=== PATIENT | female | born 1975 | race American Indian/Alaskan Native ===

== ENCOUNTER 2016-05-15 14:45 | Emergency (ER) | payer MEDICAID ==
[2016-05-15 15:26] VITALS: BP 121/72
--- NOTE | 2016-05-15 15:50 | Emergency Department Report ---
Chief Complaint: Abdominal Pain Stated Complaint: ABD PAIN Time Seen by Provider: 05/15/16 15:51 - HPI History of Present Illness: Patient here complaining of onset of abdominal pain times one week. She said the pain is in her lower quadrant of her abdomen in the pelvic area and it 7 out of 10 and feels crampy. She says she just started her period 05/14/2016. She says she vomited once yesterday. Denies any fever or chills. Denies any urinary burning. - ROS Review of Systems: All systems are negative unless stated in HPI above. - Exam Vital Signs: Vital Signs 05/15/16 15:22 Temperature 98.2 F Pulse Rate 58 L Respiratory 18 Rate Blood Pressure 121/72 O2 Sat by Pulse 100 Oximetry Physical Exam: General: This is a 40-year-old female well-nourished well-developed in no acute distress. CV: S1, S2. Regular rate and rhythm. Abdomen: Mild tenderness to pelvic area. Guarding or rebound tenderness. Normal bowel sounds in all quadrants. MSE screening note: Focused history and physical exam performed. Due to findings the following was ordered:see [facility] ED Medical Decision Making - Medical Decision Making Medical decision making: Patient seen by provider in triage area. Appropriate protocol activated and patient to main ED to be seen by physician. ED Disposition for MSE Condition: Stable Instructions: Abdominal Pain (ED)
[2016-05-15 16:17] LABS: Basophils % (Auto) 0.4 % (0.0-1.8); Eosinophils % (Auto) 2.2 % (0.0-4.3); Hematocrit 40.6 % (30.3-42.9); Hemoglobin 13.2 gm/dl (10.1-14.3); Mean Corpuscular HGB Conc 33 % (30-34); Mean Corpuscular Hemoglobin 30 pg (28-32); Mean Corpuscular Volume 92 fl (79-97); Platelet Count 237 K/mm3 (140-440); Red Blood Count 4.39 M/mm3 (3.65-5.03); Red Cell Distribution Width 13.2 % (13.2-15.2); White Blood Count 5.7 K/mm3 (4.5-11.0)
[2016-05-15 16:37] LABS: Alanine Aminotransferase 28 units/L (7-56); Albumin 3.9 g/dL (3.9-5); Albumin/Globulin Ratio 1.4 %; Alkaline Phosphatase 76 units/L (35-129); BUN/Creatinine Ratio 14.28; Bilirubin,Total 0.2 mg/dL (0.1-1.2); Blood Urea Nitrogen 10 mg/dL (7-17); Calcium 9.1 mg/dL (8.4-10.2); Carbon Dioxide 27 mmol/L (22-30); Chloride 104.8 mmol/L (98-107); Glucose 97 mg/dL (65-100); Lipase 20 units/L (13-60); Sodium 141 mmol/L (137-145); Total Protein 6.6 g/dL (6.3-8.2)
[2016-05-15 16:42] LABS: Anion Gap 14 mmol/L
[2016-05-15 17:49] LABS: Bilirubin,Urine NEG (Negative); Blood,Urine NEG (Negative); Ketones,Urine NEG (Negative); Leukocyte Esterase,Urine NEG (Negative); Mucus,Urine FEW /HPF; Nitrite,Urine NEG (Negative); Protein,Urine <15 mg/dL mg/dL (Negative)
--- NOTE | 2016-05-16 00:16 | Admit Criteria Form ---
Admission Criteria Documentation: ABDOMINAL PAIN Clinical Indications for Admission to Inpatient Care (Place 'X' for any and all applicable criteria): Admission is indicated for ANY ONE of the following(1)(2)(3)(4)(5): [ ]I. Inpatient admission required rather than observation care (Also use Abdominal Pain: Observation Care, as appropriate) because of ANY ONE of the following: [ ]a) Severe pain requiring acute inpatient management [ ]b) Identification of etiology/finding that requires inpatient care (eg, aortic dissection, free air) [ ]c) Absent bowel sounds with complete ileus(6) [ ]d) Suspected toxic megacolon [ ]e) Severe electrolyte abnormalities requiring inpatient care [ ]f) High fever or infection requiring inpatient admission as indicated by ANY ONE of following(7)(8): [ ] i) Appropriate outpatient or observational care antimicrobial treatment unavailable, not effective, or not feasible [ ] ii) Documented bacteremia [ ] iii) Temperature > 104.9 degrees F (oral) [ ] iv) T >103.1 F (oral) or < 96.8 F(rectal) that does not respond to all emergency treatment measures [ ]g) Signs of intestinal obstruction [B] [ ]h) Hemodynamic instability [ ]i) IV fluid to replace significant ongoing losses (greater than 3 L/m2 per day) (12)(13) [ ]j) Percutaneous or open drainage (eg, abscess, biliary tract ) procedures [ ]k) Parenteral nutrition regimen that must be implemented on inpatient basis [ ]l) Other condition,treatment or monitoring requiring inpatient admission. [ X]II. Peritoneal signs present [ ]III. Surgery needed that cannot be performed on an ambulatory basis. [ ]IV. Evaluation requires patient to not eat or drink for extended period ( eg, more than 24 hours). [ ]V. Contraindications and/or Inappropriate clinical situations for Observational Care in patients with abdominal pain, when ANY ONE of the following is required: [ ]a) Thorough evaluation is required to prevent catastrophic events due to delays in diagnosing (e.g.Mesenteric ischemia) 1,3 [ ]b) Patient with severe pathology or with chronic symptoms unlikely to improve in the ED stay (3) [ ]. General contraindications and/or Inappropriate clinical situations for Observational Care in patients with abdominal pain, when ANY ONE of the following is required: [ ]a) Prediction of prolongation of LOS based on ANY ONE of the following may be considered as a contraindication for observational care 2, 3, 4, 5, 6, 7, 8, 9, 10, 11 [ ]i) Age > 65 yrs. [ ]ii) Patient arriving by ambulance [ ]iii) Patient with high acuity [ ]iv) Patient requiring vital sign monitoring [ ]v) Patient on IV medication [ ]b) Systolic blood pressures 180mmHg 3,12 [ ]c) Patient with altered mental status including delirium and other alteration of consciousness, (3) [ ]d) Patient whose discharge disposition will be to a senior care home or rehabilitation home should not be managed in Emergency Department Observation Unit. CMS rule requires 3 days hospital stay before such placement.3,13 [ ]e) Patient with failure to thrive due to broad array of etiologies 3,16,17 [ ]f) Inability to ambulate 3,14 Extended stay beyond goal length of stay may be needed for(2)(3): [ ]a) Persistent abdominal pain with suspected intra-abdominal process [ ]b) Diagnosed condition requiring continued stay (e.g., pancreatitis, complicated diverticulitis) [ ]c) Surgery (e.g., colectomy) The original [employer] [facility] content created by [employer] has been revised. The portions of the content which have been revised are identified through the use of italic text or in bold, and [facility] has neither reviewed nor approved the modified material.All other unmodified content is copyright [employer] [facility]. Please see references footnoted in the original [employer] edition 2016 Admission Criteria Met: Yes
--- NOTE | 2016-05-16 13:04 | ED Elopement Review ---
ED Pt Elopement review - Results review Lab results: Laboratory Tests 05/15/16 05/15/16 05/15/16 16:07 16:07 16:07 WBC 5.7 RBC 4.39 Hgb 13.2 Hct 40.6 MCV 92 MCH 30 MCHC 33 RDW 13.2 Plt Count 237 Lymph % (Auto) 33.9 [place] % (Auto) 10.8 H Eos % (Auto) 2.2 Baso % (Auto) 0.4 Lymph # 1.9 [place] # 0.6 Eos # 0.1 Baso # 0.0 Seg Neutrophils % 52.7 Seg Neutrophils # 3.0 Sodium 141 Potassium 5.0 Chloride 104.8 Carbon Dioxide 27 Anion Gap 14 BUN 10 Creatinine 0.7 Estimated GFR > 60 BUN/Creatinine Ratio 14.28 Glucose 97 Calcium 9.1 Total Bilirubin 0.2 AST 23 ALT 28 Alkaline Phosphatase 76 Total Protein 6.6 Albumin 3.9 Albumin/Globulin Ratio 1.4 Amylase Lipase 20 HCG, Qual Negative Urine Color Urine Turbidity Urine pH Ur Specific [place] Urine Protein Urine Glucose (UA) Urine Ketones Urine Blood Urine Nitrite Urine Bilirubin Urine Urobilinogen Ur Leukocyte Esterase Urine WBC (Auto) Urine RBC (Auto) U Epithel Cells (Auto) Urine Mucus 05/15/16 05/15/16 16:07 17:25 WBC RBC Hgb Hct MCV MCH MCHC RDW Plt Count Lymph % (Auto) [place] % (Auto) Eos % (Auto) Baso % (Auto) Lymph # [place] # Eos # Baso # Seg Neutrophils % Seg Neutrophils # Sodium Potassium Chloride Carbon Dioxide Anion Gap BUN Creatinine Estimated GFR BUN/Creatinine Ratio Glucose Calcium Total Bilirubin AST ALT Alkaline Phosphatase Total Protein Albumin Albumin/Globulin Ratio Amylase 61 Lipase HCG, Qual Urine Color Yellow Urine Turbidity Clear Urine pH 6.0 Ur Specific [place] 1.018 Urine Protein <15 mg/dl Urine Glucose (UA) Neg Urine Ketones Neg Urine Blood Neg Urine Nitrite Neg Urine Bilirubin Neg Urine Urobilinogen 2.0 Ur Leukocyte Esterase Neg Urine WBC (Auto) 3.0 Urine RBC (Auto) 1.0 U Epithel Cells (Auto) < 1.0 Urine Mucus Few - Call Back decision Pt Call Back Decision: Pt to F/U with PMD
== END 2016-05-15 19:10 | disposition left against medical advice (07) ==
LOC: ED 14:45
DX: R10.2 Pelvic and perineal pain (principal); R11.10 Vomiting, unspecified; Z53.21 Procedure and treatment not carried out due to patient leaving prior to being seen by health care provider
CPT/HCPCS: 36415; 80053; 81001; 82150; 83690; 84703; 85025

== ENCOUNTER 2016-08-15 10:56 | Emergency (ER) | payer MEDICAID ==
[2016-08-15 11:04] VITALS: BP 121/70
[2016-08-15 11:47] LABS: Bilirubin,Urine NEG (Negative); Blood,Urine NEG (Negative); Ketones,Urine NEG (Negative); Leukocyte Esterase,Urine NEG (Negative); Mucus,Urine FEW /HPF; Nitrite,Urine NEG (Negative); Protein,Urine <15 mg/dL mg/dL (Negative); Urobilinogen,Urine < 2.0 mg/dL (<2.0)
[2016-08-15 11:57] LABS: Alanine Aminotransferase 13 units/L (7-56); Albumin 3.9 g/dL (3.9-5); Albumin/Globulin Ratio 1.5 %; Alkaline Phosphatase 65 units/L (35-129); Anion Gap 15 mmol/L; Bilirubin,Total 0.3 mg/dL (0.1-1.2); Blood Urea Nitrogen 9 mg/dL (7-17); Calcium 8.8 mg/dL (8.4-10.2); Carbon Dioxide 25 mmol/L (22-30); Chloride 101.5 mmol/L (98-107); Glucose 91 mg/dL (65-100); Lipase 17 units/L (13-60); Potassium 4.2 mmol/L (3.6-5.0); Sodium 137 mmol/L (137-145); Total Protein 6.5 g/dL (6.3-8.2)
[2016-08-15 12:01] LABS: Basophils % (Auto) 0.4 % (0.0-1.8); Eosinophils % (Auto) 1.4 % (0.0-4.3); Hematocrit 40.3 % (30.3-42.9); Mean Corpuscular HGB Conc 32 % (30-34); Mean Corpuscular Hemoglobin 30 pg (28-32); Mean Corpuscular Volume 92 fl (79-97); Platelet Count 244 K/mm3 (140-440); Red Blood Count 4.37 M/mm3 (3.65-5.03); Red Cell Distribution Width 13.2 % (13.2-15.2); White Blood Count 6.5 K/mm3 (4.5-11.0)
== END 2016-08-15 11:25 | disposition left against medical advice (07) ==
LOC: ED 10:56
DX: R10.32 Left lower quadrant pain (principal); J45.909 Unspecified asthma, uncomplicated; F17.200 Nicotine dependence, unspecified, uncomplicated; Z53.21 Procedure and treatment not carried out due to patient leaving prior to being seen by health care provider
CPT/HCPCS: 36415; 80053; 81001; 81025; 83690; 85025

== ENCOUNTER 2017-07-31 12:00 | Emergency (ER) | payer MEDICAID ==
[2017-07-31 12:18] VITALS: BP 112/74
[2017-07-31] MEDS ORDERED: NORCO 5/325 PO ONE (14:40)
[2017-07-31] MEDS ORDERED: ZOFRAN ODT PO ONE (14:47)
--- NOTE | 2017-07-31 14:47 | Emergency Department Report ---
ED Neck Pain/Injury HPI - General Chief Complaint: Neck Pain/Injury Stated Complaint: NECK AND BACK PAIN Time Seen by Provider: 07/31/17 14:34 Mode of arrival: Ambulatory Limitations: No Limitations - History of Present Illness Initial Comments: 41-year-old female past medical history asthma presents with acute on chronic neck pain. Pain is worse when she flexes her neck. It radiates to the top of right neck/shoulder laterally. States she has been waking up with stiff neck. Denies photo phonophobia denies fever or chills. Denies any nausea or vomiting. Denies any direct trauma to neck or shoulders. Patient states she specifically feels the pain when she laterally flexes and rotates her head to the right. Patient works as a party plan sales unit advisor. Patient denies any chest pain shortness of breath palpitations. The headache associated with neck pain. Patient is able to move her neck but it feels stiff. MD Complaint: neck pain Onset/Timin -: week(s) Place: home Radiation: right shoulder Severity: moderate Severity scale (0 -10): 7 Quality: dull, aching Consistency: intermittent Worsens With: movement of neck Associated Symptoms: none Treatments Prior to Arrival: none - Related Data Previous Rx's Medication Instructions Recorded Last Taken Type Cyclobenzaprine [Flexeril] 10 mg PO TID PRN #15 tablet 09/28/15 Unknown Rx Ibuprofen [Motrin 800 MG tab] 800 mg PO Q8HR #30 tablet 09/28/15 Unknown Rx Cyclobenzaprine [Flexeril] 10 mg PO TID PRN #12 tablet 07/31/17 Unknown Rx Ibuprofen [Motrin] 800 mg PO Q8HR PRN #20 tablet 07/31/17 Unknown Rx Allergies Allergy/AdvReac Type Severity Reaction Status Date / Time No Known Allergies Allergy Verified 05/13/15 12:51 ED Review of Systems ROS: Stated complaint: NECK AND BACK PAIN Other details as noted in HPI Constitutional: denies: chills, fever Eyes: denies: eye pain, eye discharge, vision change ENT: denies: ear pain, throat pain Respiratory: denies: cough, shortness of breath, wheezing Cardiovascular: denies: chest pain, palpitations Endocrine: no symptoms reported Gastrointestinal: denies: abdominal pain, nausea, diarrhea Genitourinary: denies: urgency, dysuria, discharge Musculoskeletal: as per HPI. denies: back pain, joint swelling, arthralgia Skin: denies: rash, lesions Neurological: denies: headache, weakness, paresthesias Psychiatric: denies: anxiety, depression Hematological/Lymphatic: denies: easy bleeding, easy bruising ED Past Medical Hx - Past Medical History Previous Medical History?: Yes Hx Asthma: Yes Additional medical history: OVARIAN CYSTS - Surgical History Past Surgical History?: Yes Additional Surgical History: LEFT FALLOPIAN TUBE REMOVED - Social History Smoking Status: Current Every Day Smoker Substance Use Type: Alcohol, Non Opiate Pain - Medications Home Medications: Home Medications Medication Instructions Recorded Confirmed Last Taken Type Cyclobenzaprine [Flexeril] 10 mg PO TID PRN #15 tablet 09/28/15 Unknown Rx Ibuprofen [Motrin 800 MG tab] 800 mg PO Q8HR #30 tablet 09/28/15 Unknown Rx Cyclobenzaprine [Flexeril] 10 mg PO TID PRN #12 tablet 07/31/17 Unknown Rx Ibuprofen [Motrin] 800 mg PO Q8HR PRN #20 tablet 07/31/17 Unknown Rx ED Physical Exam - General Limitations: No Limitations General appearance: alert, in no apparent distress - Head Head exam: Present: atraumatic, normocephalic - Eye Eye exam: Present: normal appearance, PERRL, EOMI - ENT ENT exam: Present: mucous membranes moist - Neck Neck exam: Present: normal inspection, tenderness (tenderness overlying the right trapezius muscle on deep palpation), full ROM (neck flexion and extension clinically intact lateral rotation intact lateral flexion intact) - Respiratory Respiratory exam: Present: normal lung sounds bilaterally. Absent: respiratory distress - Cardiovascular Cardiovascular Exam: Present: regular rate, normal rhythm. Absent: systolic murmur, diastolic murmur, rubs, gallop - GI/Abdominal GI/Abdominal exam: Present: soft, normal bowel sounds - Extremities Exam Extremities exam: Present: normal inspection - Back Exam Back exam: Present: normal inspection - Neurological Exam Neurological exam: Present: alert, oriented X3 - Psychiatric Psychiatric exam: Present: normal affect, normal mood - Skin Skin exam: Present: warm, dry, intact, normal color. Absent: rash ED Course Vital Signs 07/31/17 12:14 Temperature 98.1 F Pulse Rate 97 H Respiratory 20 Rate Blood Pressure 112/74 O2 Sat by Pulse 100 Oximetry ED Medical Decision Making - Medical Decision Making A/P: Cervical radiculopathy 1-Motrin when necessary, Flexeril when necessary 2-follow-up with primary care and orthopedics 3-she has no meningitic signs. No fever no chills no nausea no vomiting no photophobia. Critical care attestation.: If time is entered above; I have spent that time in minutes in the direct care of this critically ill patient, excluding procedure time. ED Disposition Clinical Impression: Neck pain on right side, Cervical radicular pain Disposition: TO HOME OR SELFCARE Is pt being admited?: No Does the pt Need Aspirin: No Condition: Stable Instructions: Cervical Radiculopathy (ED), Musculoskeletal Pain (ED) Prescriptions: Cyclobenzaprine [Flexeril] 10 mg PO TID PRN #12 tablet PRN Reason: Muscle Spasm Ibuprofen [Motrin] 800 mg PO Q8HR PRN #20 tablet PRN Reason: Pain Referrals: [facility] [Provider Group] - 3-5 Days [facility] [Provider Group] - 3-5 Days Forms: Work/School Release Form(ED) Time of Disposition: 15:26
--- NOTE | 2017-07-31 16:39 | XRay Report ---
FINAL REPORT EXAM: XR SPINE CERVICAL 2-3V HISTORY: radicular pain to right side neck and shoulder TECHNIQUE: Four views cervical spine. PRIORS: None currently available. FINDINGS: C1-T1 visualized. Lordotic alignment. Vertebral body heights and disc spaces are uniform. No fracture. No subluxation. Prevertebral soft tissues are unremarkable. No scoliosis. No suspicious osseous lesions. No vertebral anomalies. Lateral masses of C1 are aligned with C2. IMPRESSION: Unremarkable.
== END 2017-07-31 15:39 | disposition home or self-care (01) ==
LOC: ED 12:00
DX: M54.2 Cervicalgia (principal); G89.29 Other chronic pain; J45.909 Unspecified asthma, uncomplicated; F17.200 Nicotine dependence, unspecified, uncomplicated; Z90.79 Acquired absence of other genital organ(s)
CPT/HCPCS: 72040; 99283; Q0162

== ENCOUNTER 2018-02-20 11:28 | Emergency (ER) | payer MEDICAID ==
[2018-02-20 12:19] VITALS: BP 114/77
[2018-02-20 13:04] LABS: Basophils % (Auto) 0.6 % (0.0-1.8); Eosinophils % (Auto) 0.1 % (0.0-4.3); Hematocrit 41.7 % (30.3-42.9); Hemoglobin 13.9 gm/dl (10.1-14.3); Lymphocytes # (Auto) 1.2 K/mm3 (1.2-5.4); Mean Corpuscular HGB Conc 33 % (30-34); Mean Corpuscular Hemoglobin 31 pg (28-32); Mean Corpuscular Volume 93 fl (79-97); Monocytes # (Auto) 0.5 K/mm3 (0.0-0.8); Monocytes % (Auto) 15.6 % (0.0-7.3); Platelet Count 184 K/mm3 (140-440); Red Blood Count 4.47 M/mm3 (3.65-5.03)
[2018-02-20 13:26] LABS: Alanine Aminotransferase 47 units/L (7-56); BUN/Creatinine Ratio 12; Blood Urea Nitrogen 7 mg/dL (7-17); Calcium 8.8 mg/dL (8.4-10.2); Hemolysis Index 11
[2018-02-20] MEDS ORDERED: TYLENOL #3 PO ONE (14:02)
[2018-02-20] MEDS ORDERED: ZOFRAN ODT PO ONE (14:03)
--- NOTE | 2018-02-20 14:07 | Emergency Department Report ---
ED General Adult HPI - General Chief complaint: Weakness Stated complaint: ABD PAIN/WEAK Time Seen by Provider: 02/20/18 13:24 Source: patient Mode of arrival: Ambulatory Limitations: No Limitations - History of Present Illness Initial comments: Patient presents to emergency department with chief complaint of pelvic pain. Patient states that she has a history of ovarian cysts that were prominent right before her cycle. Patient states she is a couple of days away from her cycle and began to have pelvic pain. Patient states this is very consistent with a history of ovarian cysts. Patient has no other complaints -: Gradual Location: abdomen Radiation: non-radiation Severity scale (0 -10): 3 Improves with: none Worsens with: none Associated Symptoms: denies other symptoms Treatments Prior to Arrival: none - Related Data Previous Rx's Medication Instructions Recorded Last Taken Type Cyclobenzaprine [Flexeril] 10 mg PO TID PRN #15 tablet 09/28/15 Unknown Rx Ibuprofen [Motrin 800 MG tab] 800 mg PO Q8HR #30 tablet 09/28/15 Unknown Rx Cyclobenzaprine [Flexeril] 10 mg PO TID PRN #12 tablet 07/31/17 Unknown Rx Ibuprofen [Motrin] 800 mg PO Q8HR PRN #20 tablet 07/31/17 Unknown Rx Acetaminophen/Codeine [Tylenol 1 tab PO Q4HR PRN #12 tablet 02/20/18 Unknown Rx /Codeine # 3 tab] Allergies Allergy/AdvReac Type Severity Reaction Status Date / Time No Known Allergies Allergy Verified 05/13/15 12:51 ED Review of Systems ROS: Stated complaint: ABD PAIN/WEAK Other details as noted in HPI Comment: All other systems reviewed and negative Constitutional: denies: chills, fever Eyes: denies: eye pain, eye discharge, vision change ENT: denies: ear pain, throat pain Respiratory: denies: cough, shortness of breath, wheezing Cardiovascular: denies: chest pain, palpitations Endocrine: no symptoms reported Gastrointestinal: denies: abdominal pain, nausea, diarrhea Genitourinary: denies: urgency, dysuria, discharge Musculoskeletal: denies: back pain, joint swelling, arthralgia Skin: denies: rash, lesions Neurological: denies: headache, weakness, paresthesias Psychiatric: denies: anxiety, depression Hematological/Lymphatic: denies: easy bleeding, easy bruising ED Past Medical Hx - Past Medical History Hx Asthma: Yes Additional medical history: OVARIAN CYSTS - Surgical History Additional Surgical History: LEFT FALLOPIAN TUBE REMOVED - Social History Smoking Status: Current Every Day Smoker Substance Use Type: None - Medications Home Medications: Home Medications Medication Instructions Recorded Confirmed Last Taken Type Cyclobenzaprine [Flexeril] 10 mg PO TID PRN #15 tablet 09/28/15 Unknown Rx Ibuprofen [Motrin 800 MG tab] 800 mg PO Q8HR #30 tablet 09/28/15 Unknown Rx Cyclobenzaprine [Flexeril] 10 mg PO TID PRN #12 tablet 07/31/17 Unknown Rx Ibuprofen [Motrin] 800 mg PO Q8HR PRN #20 tablet 07/31/17 Unknown Rx Acetaminophen/Codeine [Tylenol 1 tab PO Q4HR PRN #12 tablet 02/20/18 Unknown Rx /Codeine # 3 tab] ED Physical Exam - General Limitations: No Limitations General appearance: alert, in no apparent distress - Head Head exam: Present: atraumatic, normocephalic - Eye Eye exam: Present: normal appearance - ENT ENT exam: Present: mucous membranes moist - Neck Neck exam: Present: normal inspection - Respiratory Respiratory exam: Present: normal lung sounds bilaterally. Absent: respiratory distress, wheezes, rales, rhonchi - Cardiovascular Cardiovascular Exam: Present: regular rate, normal rhythm. Absent: systolic murmur, diastolic murmur, rubs, gallop - GI/Abdominal GI/Abdominal exam: Present: soft, normal bowel sounds. Absent: distended, tenderness - Extremities Exam Extremities exam: Present: normal inspection - Back Exam Back exam: Present: normal inspection - Neurological Exam Neurological exam: Present: alert, oriented X3, CN II-XII intact. Absent: motor sensory deficit - Psychiatric Psychiatric exam: Present: normal affect, normal mood - Skin Skin exam: Present: warm, dry, intact, normal color. Absent: rash ED Course Vital Signs 02/20/18 12:14 Temperature 97.8 F Pulse Rate 87 Respiratory 14 Rate Blood Pressure 114/77 O2 Sat by Pulse 100 Oximetry ED Medical Decision Making - Lab Data Result diagrams: 02/20/18 12:47 02/20/18 12:47 Lab Results 02/20/18 02/20/18 02/20/18 Range/Units 12:47 12:47 Unknown WBC 3.1 L (4.5-11.0) K/mm3 RBC 4.47 (3.65-5.03) M/mm3 Hgb 13.9 (10.1-14.3) gm/dl Hct 41.7 (30.3-42.9) % MCV 93 (79-97) fl MCH 31 (28-32) pg MCHC 33 (30-34) % RDW 13.0 L (13.2-15.2) % Plt Count 184 (140-440) K/mm3 Lymph % (Auto) 40.0 H (13.4-35.0) % [place] % (Auto) 15.6 H (0.0-7.3) % Eos % (Auto) 0.1 (0.0-4.3) % Baso % (Auto) 0.6 (0.0-1.8) % Lymph # 1.2 (1.2-5.4) K/mm3 [place] # 0.5 (0.0-0.8) K/mm3 Eos # 0.0 (0.0-0.4) K/mm3 Baso # 0.0 (0.0-0.1) K/mm3 Seg Neutrophils % 43.7 (40.0-70.0) % Seg Neutrophils # 1.3 L (1.8-7.7) K/mm3 Sodium 142 (137-145) mmol/L Potassium 4.6 (3.6-5.0) mmol/L Chloride 106.2 (98-107) mmol/L Carbon Dioxide 24 (22-30) mmol/L Anion Gap 16 mmol/L BUN 7 (7-17) mg/dL Creatinine 0.6 L (0.7-1.2) mg/dL Estimated GFR > 60 ml/min BUN/Creatinine Ratio 12 % Glucose 93 (65-100) mg/dL Calcium 8.8 (8.4-10.2) mg/dL Total Bilirubin 0.20 (0.1-1.2) mg/dL AST 46 H (5-40) units/L ALT 47 (7-56) units/L Alkaline Phosphatase 85 (35-129) units/L Total Protein 6.9 (6.3-8.2) g/dL Albumin 4.0 (3.9-5) g/dL Albumin/Globulin Ratio 1.4 % Urine Color Yellow (Yellow) Urine Turbidity Cloudy (Clear) Urine pH 7.0 (5.0-7.0) Ur Specific [place] 1.015 (1.003-1.030) Urine Protein <15 mg/dl (Negative) mg/dL Urine Glucose (UA) Neg (Negative) mg/dL Urine Ketones Neg (Negative) mg/dL Urine Blood Mod (Negative) Urine Nitrite Neg (Negative) Urine Bilirubin Neg (Negative) Urine Urobilinogen 4.0 (<2.0) mg/dL Ur Leukocyte Esterase Neg (Negative) Urine WBC (Auto) 1.0 (0.0-6.0) /HPF Urine RBC (Auto) 2.0 (0.0-6.0) /HPF Amorphous Crystals Few Urine Mucus Few /HPF Urine HCG, Qual Negative (Negative) - Medical Decision Making Discussed results with the patient Imaging discussed with the patient politely declined Critical care attestation.: If time is entered above; I have spent that time in minutes in the direct care of this critically ill patient, excluding procedure time. ED Disposition Clinical Impression: Pelvic pain Disposition: DC-01 TO HOME OR SELFCARE Is pt being admited?: No Does the pt Need Aspirin: No Condition: Stable Instructions: Acute Abdominal Pain (ED) Additional Instructions: return if worse Prescriptions: Acetaminophen/Codeine [Tylenol /Codeine # 3 tab] 1 tab PO Q4HR PRN #12 tablet PRN Reason: Pain Referrals: [facility] [Provider Group] - 3-5 Days Forms: Work/School Release Form(ED) Time of Disposition: 14:59
[2018-02-20 14:36] LABS: Amorphous Crystals,Urine Few; Bilirubin,Urine NEG (Negative); Blood,Urine MOD (Negative); Color,Urine Yellow (Yellow); HCG Qualitative,Urine Negative (Negative); Mucus,Urine FEW /HPF; Protein,Urine <15 mg/dL mg/dL (Negative)
== END 2018-02-20 15:12 | disposition home or self-care (01) ==
LOC: ED 11:28
DX: R10.2 Pelvic and perineal pain (principal); J45.909 Unspecified asthma, uncomplicated; F17.200 Nicotine dependence, unspecified, uncomplicated; Z90.79 Acquired absence of other genital organ(s); Z79.899 Other long term (current) drug therapy
CPT/HCPCS: 36415; 80053; 81001; 81025; 85025; 99283; Q0162

== ENCOUNTER 2018-05-18 13:19 | Emergency (ER) | payer MEDICAID, OTHER ==
--- NOTE | 2018-05-18 17:04 | Emergency Department Report ---
Minor Respiratory - HPI Chief Complaint: Upper Respiratory Infection Stated Complaint: FLU LIKE SYMPTOMS Time Seen by Provider: 05/18/18 16:54 Duration: 3 Days Pain Location: Nose Severity: mild Minor Respiratory: Yes Rhinorrhea, Yes Able to Tolerate Fluids, Yes Cough, Yes Sick Contacts (coworkers), Yes Fever, No Sore Throat, No Ear Pain, No Hemoptysis, No Chest Pain, No Shortness of Breath Other History: This is a 42-year-old -[place] female who presents with flulike symptoms for the past 3 days. Patient reports sneezing, body aches, productive cough, fever, chills, and rhinorrhea. Patient stated multiple coworkers at work were sick over the past 2 weeks. She caught something there. She is currently taken Benadryl, TheraFlu, and Tylenol with some improvement of symptoms. She denies chest pain, shortness of breath, nausea or vomiting. ED Review of Systems ROS: Stated complaint: FLU LIKE SYMPTOMS Other details as noted in HPI Constitutional: chills. denies: fever ENT: congestion. denies: ear pain, throat pain, dental pain, hearing loss, epistaxis Respiratory: cough. denies: shortness of breath, wheezing Cardiovascular: denies: chest pain, palpitations Gastrointestinal: denies: abdominal pain, nausea, diarrhea Musculoskeletal: myalgia Neurological: headache. denies: weakness, paresthesias Psychiatric: denies: anxiety, depression ED Past Medical Hx - Past Medical History Hx Asthma: Yes Additional medical history: OVARIAN CYSTS - Surgical History Additional Surgical History: LEFT FALLOPIAN TUBE REMOVED - Social History Smoking Status: Never Smoker Substance Use Type: None - Medications Home Medications: Home Medications Medication Instructions Recorded Confirmed Last Taken Type Cyclobenzaprine [Flexeril] 10 mg PO TID PRN #15 tablet 09/28/15 Unknown Rx Ibuprofen [Motrin 800 MG tab] 800 mg PO Q8HR #30 tablet 09/28/15 Unknown Rx Cyclobenzaprine [Flexeril] 10 mg PO TID PRN #12 tablet 07/31/17 Unknown Rx Ibuprofen [Motrin] 800 mg PO Q8HR PRN #20 tablet 07/31/17 Unknown Rx Acetaminophen/Codeine [Tylenol 1 tab PO Q4HR PRN #12 tablet 02/20/18 Unknown Rx /Codeine # 3 tab] Benzonatate [Tessalon Perle] 100 mg PO TID PRN #30 capsule 05/18/18 Unknown Rx Fluticasone [Flonase] 1 spray NS QDAY #1 bottle 05/18/18 Unknown Rx Ibuprofen 800 mg PO Q6H PRN #15 tablet 05/18/18 Unknown Rx Minor Respiratory Exam - Exam General: Vital signs noted. No distress. Alert and acting appropriately. HEENT: Yes Pharyngeal Erythema (erythematous posterior pharynx, uvula midline), Yes Moist Mucous Membranes, Yes Rhinorrhea (turbinates mildly congested with clear discharge), No Pharyngeal Exudates, No Conjuctival Injection, No Frontal Tenderness, No Maxillary Tenderness Ear: Neither TM Bulge, Neither TM Erythema, Neither EAC Pain, Neither EAC Discharge Neck: Yes Supple, No Adenopathy Lungs: Yes Good Air Exchange, Yes Cough, No Wheezes, No Ronchi, No Stridor, No Labored Respirations, No Retractions, No Use of Accessory Muscles, No Other Abnormal Lung Sounds Heart: Yes Regular, No Murmur Abdomen: Yes Normal Bowel Sounds, No Tenderness, No Peritoneal Signs Skin: No Rash, No Edema Neurologic: Alert and oriented, no deficits. Musculoskeletal: Unremarkable. ED Course Vital Signs 05/18/18 13:42 Temperature 98.6 F Pulse Rate 80 Respiratory 20 Rate Blood Pressure 113/79 O2 Sat by Pulse 100 Oximetry ED Medical Decision Making - Medical Decision Making 42 y.o. female that presents with URI symptoms for 3 days. Patient examined by me and stable. No distress noted. Vitals normal. Physical findings susceptible of upper respiratory. Start flonase, benzonatate, cetirizine. Discharged home stable. Encouraged to do supportive care for URI. Follow up with Primary Care Provider in 2-3 days. Critical care attestation.: If time is entered above; I have spent that time in minutes in the direct care of this critically ill patient, excluding procedure time. ED Disposition Clinical Impression: Viral syndrome Upper respiratory infection Qualifiers: URI type: acute nasopharyngitis (common cold) Qualified Code(s): J00 - Acute nasopharyngitis [common cold] Disposition: TO HOME OR SELFCARE Is pt being admited?: No Does the pt Need Aspirin: No Condition: Stable Instructions: Upper Respiratory Infection (ED), Viral Syndrome (ED), Cold Symptoms (ED) Additional Instructions: Increase fluid intake and rest. Wash hands frequently. Continue taking Tylenol or ibuprofen to control fever. F/U with Primary Care Provider. Return to ER if fever, SOB, or difficulty breathing after 48 hours of supportive care. Prescriptions: Benzonatate [Tessalon Perle] 100 mg PO TID PRN #30 capsule PRN Reason: Cough Fluticasone [Flonase] 1 spray NS QDAY #1 bottle Ibuprofen 800 mg PO Q6H PRN #15 tablet PRN Reason: Pain , Severe (7-10) Referrals: [facility] [Outside] - 3-5 Days [facility] [Outside] - 3-5 Days [facility] [Outside] - 3-5 Days Forms: Work/School Release Form(ED) Time of Disposition: 17:08
== END 2018-05-18 18:51 | disposition home or self-care (01) ==
LOC: ED 13:19
CPT/HCPCS: 99282